=== PATIENT | male | born 1975 | race Caucasian/White ===

== ENCOUNTER 2020-12-24 13:44 | Inpatient (IN) | payer OTHER ==
[2020-12-24 16:00] VITALS: BMI 30.2
[2020-12-24] MEDS ORDERED: ONDANSETRON *ODT* 4 MG TABLET SL PRN (18:24)
[2020-12-24] MEDS ORDERED: MENTHOL/PHENOL 1 EACH UD MM PRN (18:24)
[2020-12-24] MEDS ORDERED: MAGNESIUM HYDROX 2400MG/30ML ORAL SUSPENSION 30 ML CUP PO PRN (18:24)
[2020-12-24] MEDS ORDERED: MAG HYDROX/AL HYDROX/SIMETH 30 ML UNIT-DOSE CUP PO PRN (18:24)
[2020-12-24] MEDS ORDERED: NICOTINE POLACRILEX 2 MG GUM BUC PRN (18:24)
[2020-12-24] MEDS ORDERED: MAGNESIUM CITRATE 300 ML BOTTLE PO PRN (18:24)
[2020-12-24] MEDS ORDERED: ACETAMINOPHEN 325 MG TABLET (FP) PO PRN ×2 (18:24)
[2020-12-24] MEDS ORDERED: BISMUTH SUBSALICYLATE 524 MG/30 ML UD PO PRN (18:24)
[2020-12-24] MEDS ORDERED: METHADONE HCL 10 MG TABLET (FOR DETOX USE ONLY) PO ONE (20:00)
[2020-12-24] MEDS: MELATONIN 5 MG TABLETS PO SCH (22:27)
[2020-12-24] MEDS: THIAMINE HCL 100 MG TABLET (FP) PO SCH (22:27)
[2020-12-25] MEDS: METHOCARBAMOL 500 MG TABLET PO PRN ×2 (02:23→09:47)
[2020-12-25] MEDS: cloNIDine HCL 0.1 MG TABLET PO PRN (02:24)
[2020-12-25] MEDS ORDERED: METHADONE HCL 10 MG TABLET (FOR DETOX USE ONLY) ONE (09:15)
[2020-12-25] MEDS ORDERED: METHADONE HCL 5 MG TABLET (FOR DETOX USE ONLY) ONE (09:15)
[2020-12-25] MEDS: NICOTINE 21 MG/24 HOURS TOPICAL PATCH TD SCH (09:46)
[2020-12-25] MEDS: PRENATAL VITAMINS W/ FOLIC ACID TABLET (FP) PO SCH (09:46)
[2020-12-25] MEDS ORDERED: METHADONE (DETOX) 20 MG, METHADONE (DETOX) 5 MG PO ONE (10:00)
[2020-12-25 10:52] LABS: HEMATOCRIT 39.6 % (35.4-49); HEMOGLOBIN 13.6 GM/dL (11.7-16.9); MCH 31.9 pg (25.7-33.7); MCHC 34.4 g/dl (32.0-35.9); MEAN CELL VOLUME 92.8 fl (80-96); MEAN PLT VOLUME 9.7 fl (7.5-11.1); PLATELET COUNT 180 K/MM3 (134-434); RBC 4.27 M/mm3 (4.00-5.60); WHITE BLOOD COUNT 6.7 K/mm3 (4.0-10.0)
[2020-12-25 10:57] LABS: POTASSIUM 3.9 mmol/L (3.5-5.1)
[2020-12-25 11:04] LABS: ALBUMIN 3.1 g/dl (3.4-5.0); BLOOD UREA NITROGEN 13.2 mg/dL (7-18); CALCIUM 8.3 mg/dL (8.5-10.1)
[2020-12-25 11:09] LABS: BILIRUBIN,TOTAL 0.6 mg/dL (0.2-1)
[2020-12-25] MEDS ORDERED: ALBUTEROL SO4 HFA INHALER IH PRN (11:55)
[2020-12-25 13:08] LABS: HIV INTERPRETATION NEGATIVE (NEGATIVE)
[2020-12-25] MEDS: AMMONIUM LACTATE 12% LOTION 225 GM BOTTLE TP SCH (21:58)
[2020-12-25] MEDS: MELATONIN 5 MG TABLETS PO SCH (22:00)
[2020-12-25] MEDS: THIAMINE HCL 100 MG TABLET (FP) PO SCH (22:00)
[2020-12-25] MEDS: diazePAM 5 MG TABLET PO PRN (22:04)
[2020-12-26] MEDS: diazePAM 5 MG TABLET PO PRN ×3 (03:10→22:46)
[2020-12-26] MEDS: METHOCARBAMOL 500 MG TABLET PO PRN ×2 (03:10→11:16)
[2020-12-26] MEDS: PRENATAL VITAMINS W/ FOLIC ACID TABLET (FP) PO SCH (09:32)
[2020-12-26] MEDS: NICOTINE 21 MG/24 HOURS TOPICAL PATCH TD SCH (09:32)
[2020-12-26] MEDS: AMMONIUM LACTATE 12% LOTION 225 GM BOTTLE TP SCH ×2 (09:33→22:48)
[2020-12-26] MEDS ORDERED: METHADONE HCL 10 MG TABLET (FOR DETOX USE ONLY) PO ONE (10:00)
[2020-12-26] MEDS: cloNIDine HCL 0.1 MG TABLET PO PRN (11:16)
[2020-12-26] MEDS: IBUPROFEN 400 MG TABLET (FP) PO PRN ×2 (11:16→17:50)
[2020-12-26] MEDS: THIAMINE HCL 100 MG TABLET (FP) PO SCH (22:44)
[2020-12-26] MEDS: MELATONIN 5 MG TABLETS PO SCH (22:45)
[2020-12-27] MEDS: METHOCARBAMOL 500 MG TABLET PO PRN ×3 (05:42→22:20)
[2020-12-27] MEDS ORDERED: METHADONE HCL 10 MG TABLET (FOR DETOX USE ONLY) ONE (09:42)
[2020-12-27] MEDS ORDERED: METHADONE HCL 5 MG TABLET (FOR DETOX USE ONLY) ONE (09:42)
[2020-12-27] MEDS: NICOTINE 21 MG/24 HOURS TOPICAL PATCH TD SCH (10:00)
[2020-12-27] MEDS ORDERED: METHADONE (DETOX) 10 MG, METHADONE (DETOX) 5 MG PO ONE (10:00)
[2020-12-27] MEDS: PRENATAL VITAMINS W/ FOLIC ACID TABLET (FP) PO SCH (10:01)
[2020-12-27] MEDS: AMMONIUM LACTATE 12% LOTION 225 GM BOTTLE TP SCH ×2 (10:02→21:58)
[2020-12-27] MEDS: diazePAM 5 MG TABLET PO PRN ×2 (14:38→20:28)
[2020-12-27] MEDS: IBUPROFEN 400 MG TABLET (FP) PO PRN ×2 (14:38→22:21)
[2020-12-27] MEDS: MELATONIN 5 MG TABLETS PO SCH (21:56)
[2020-12-27] MEDS: THIAMINE HCL 100 MG TABLET (FP) PO SCH (21:56)
[2020-12-28] MEDS: diazePAM 5 MG TABLET PO PRN ×2 (05:13→10:09)
[2020-12-28] MEDS: METHOCARBAMOL 500 MG TABLET PO PRN ×2 (05:15→20:17)
[2020-12-28] MEDS ORDERED: METHADONE HCL 10 MG TABLET (FOR DETOX USE ONLY) PO ONE (10:00)
[2020-12-28] MEDS: AMMONIUM LACTATE 12% LOTION 225 GM BOTTLE TP SCH ×2 (10:05→21:41)
[2020-12-28] MEDS: NICOTINE 21 MG/24 HOURS TOPICAL PATCH TD SCH (10:05)
[2020-12-28] MEDS: PRENATAL VITAMINS W/ FOLIC ACID TABLET (FP) PO SCH (10:07)
[2020-12-28] MEDS: IBUPROFEN 400 MG TABLET (FP) PO PRN (10:11)
[2020-12-28] MEDS: hydrOXYzine PAMOATE 25 MG CAPSULE (FP) PO PRN ×2 (14:30→20:17)
[2020-12-28] MEDS: MELATONIN 5 MG TABLETS PO SCH (21:41)
[2020-12-28] MEDS: THIAMINE HCL 100 MG TABLET (FP) PO SCH (21:41)
[2020-12-29] MEDS: IBUPROFEN 400 MG TABLET (FP) PO PRN (02:29)
[2020-12-29] MEDS: METHOCARBAMOL 500 MG TABLET PO PRN (02:30)
[2020-12-29] MEDS: hydrOXYzine PAMOATE 25 MG CAPSULE (FP) PO PRN (05:21)
[2020-12-29] MEDS ORDERED: METHADONE HCL 5 MG TABLET (FOR DETOX USE ONLY) PO ONE (06:00)
[2020-12-29 06:19] VITALS: BP 102/58; PULSE 61; TEMP 97.2
[2020-12-29] MEDS: AMMONIUM LACTATE 12% LOTION 225 GM BOTTLE TP SCH (10:06)
[2020-12-29] MEDS: PRENATAL VITAMINS W/ FOLIC ACID TABLET (FP) PO SCH (10:07)
[2020-12-29] MEDS: NICOTINE 21 MG/24 HOURS TOPICAL PATCH TD SCH (10:07)
== END 2020-12-29 12:05 | disposition other institution (70) | DRG 773 ==
LOC: YASAS 13:44 → Y3N 19:47
PROVIDERS: ADMIT Allergy & Immunology; ATTEND Allergy & Immunology
PROC: HZ2ZZZZ Detoxification Services for Substance Abuse Treatment (ICD-10-PCS; principal; 2020-12-24)
DX: F11.23 Opioid dependence with withdrawal (principal); F14.20 Cocaine dependence, uncomplicated; F17.210 Nicotine dependence, cigarettes, uncomplicated; J45.909 Unspecified asthma, uncomplicated; L40.9 Psoriasis, unspecified; R76.11 Nonspecific reaction to tuberculin skin test without active tuberculosis; Z56.0 Unemployment, unspecified; Z59.0 Homelessness
CPT/HCPCS: 36415; 71046-TC-FY; 80053; 85027; 86780; 87389; 93005; 93010; C9803; J0735; Q0162; U0003

== ENCOUNTER 2020-12-29 13:36 | Inpatient (IN) | payer OTHER ==
[2020-12-29] MEDS ORDERED: MENTHOL/PHENOL 1 EACH UD MM PRN (15:28)
[2020-12-29] MEDS ORDERED: MAGNESIUM CITRATE 300 ML BOTTLE PO PRN (15:28)
[2020-12-29] MEDS ORDERED: MAGNESIUM HYDROX 2400MG/30ML ORAL SUSPENSION 30 ML CUP PO PRN (15:28)
[2020-12-29] MEDS ORDERED: LOPERAMIDE HCL 2 MG CAPSULE PO PRN (15:28)
[2020-12-29] MEDS ORDERED: NICOTINE POLACRILEX 2 MG GUM BUC PRN (15:28)
[2020-12-29] MEDS ORDERED: P-EPHED 60MG/TRIPROLIDI 2.5MG TABLET PO PRN (15:28)
[2020-12-29] MEDS ORDERED: MAG HYDROX/AL HYDROX/SIMETH 30 ML UNIT-DOSE CUP PO PRN (15:28)
[2020-12-29] MEDS ORDERED: guaiFENesin 200 MG/10 ML 10 ML UNIT-DOSE CUPS PO PRN (15:28)
[2020-12-29] MEDS ORDERED: AMMONIUM LACTATE 12% LOTION 225 GM BOTTLE TP PRN (15:33)
[2020-12-29] MEDS ORDERED: PT OWN MED DRAWER 7, Y5N ONE (15:58)
[2020-12-29] MEDS: hydrOXYzine PAMOATE 25 MG CAPSULE (FP) PO PRN (19:41)
[2020-12-29] MEDS: THIAMINE HCL 100 MG TABLET (FP) PO SCH (21:20)
[2020-12-29] MEDS: MELATONIN 5 MG TABLETS PO SCH (21:20)
[2020-12-29] MEDS: ALBUTEROL SO4 HFA INHALER IH PRN (23:05)
[2020-12-30] MEDS: hydrOXYzine PAMOATE 25 MG CAPSULE (FP) PO PRN ×5 (00:49→21:11)
[2020-12-30] MEDS: IBUPROFEN 400 MG TABLET (FP) PO PRN ×2 (04:59→14:38)
[2020-12-30] MEDS ORDERED: PT OWN MED DRAWER 7, Y5N ONE (08:48)
[2020-12-30] MEDS: PRENATAL VITAMINS W/ FOLIC ACID TABLET (FP) PO SCH (09:51)
[2020-12-30] MEDS: NICOTINE 14 MG/24 HOURS TOPICAL PATCH TD SCH (09:51)
[2020-12-30] MEDS: ACETAMINOPHEN 325 MG TABLET (FP) PO PRN (09:54)
[2020-12-30] MEDS: MELATONIN 5 MG TABLETS PO SCH (21:11)
[2020-12-30] MEDS: THIAMINE HCL 100 MG TABLET (FP) PO SCH (21:11)
[2020-12-30] MEDS: cloNIDine HCL 0.1 MG TABLET PO SCH (21:12)
[2020-12-30] MEDS: METHOCARBAMOL 500 MG TABLET PO PRN (23:36)
[2020-12-31] MEDS: hydrOXYzine PAMOATE 25 MG CAPSULE (FP) PO PRN (10:09)
[2020-12-31] MEDS: NICOTINE 14 MG/24 HOURS TOPICAL PATCH TD SCH (10:09)
[2020-12-31] MEDS: cloNIDine HCL 0.1 MG TABLET PO SCH ×2 (10:09→21:27)
[2020-12-31] MEDS: PRENATAL VITAMINS W/ FOLIC ACID TABLET (FP) PO SCH (10:09)
[2020-12-31] MEDS: THIAMINE HCL 100 MG TABLET (FP) PO SCH (21:27)
[2020-12-31] MEDS: MELATONIN 5 MG TABLETS PO SCH (21:27)
[2021-01-01] MEDS: hydrOXYzine PAMOATE 25 MG CAPSULE (FP) PO PRN ×2 (06:31→09:59)
[2021-01-01] MEDS: PRENATAL VITAMINS W/ FOLIC ACID TABLET (FP) PO SCH (09:58)
[2021-01-01] MEDS: NICOTINE 14 MG/24 HOURS TOPICAL PATCH TD SCH (09:58)
[2021-01-01] MEDS: cloNIDine HCL 0.1 MG TABLET PO SCH ×2 (09:59→21:25)
[2021-01-01] MEDS: ACETAMINOPHEN 325 MG TABLET (FP) PO PRN (10:02)
[2021-01-01] MEDS: METHOCARBAMOL 500 MG TABLET PO PRN (11:43)
[2021-01-01] MEDS: IBUPROFEN 400 MG TABLET (FP) PO PRN (11:43)
[2021-01-01] MEDS: THIAMINE HCL 100 MG TABLET (FP) PO SCH (21:25)
[2021-01-01] MEDS: MELATONIN 5 MG TABLETS PO SCH (21:25)
[2021-01-02] MEDS: hydrOXYzine PAMOATE 25 MG CAPSULE (FP) PO PRN ×3 (02:22→21:17)
[2021-01-02] MEDS: IBUPROFEN 400 MG TABLET (FP) PO PRN ×2 (02:23→16:27)
[2021-01-02] MEDS: cloNIDine HCL 0.1 MG TABLET PO SCH ×2 (10:28→21:16)
[2021-01-02] MEDS: NICOTINE 14 MG/24 HOURS TOPICAL PATCH TD SCH (10:28)
[2021-01-02] MEDS: PRENATAL VITAMINS W/ FOLIC ACID TABLET (FP) PO SCH (10:28)
[2021-01-02] MEDS: THIAMINE HCL 100 MG TABLET (FP) PO SCH (21:15)
[2021-01-02] MEDS: MELATONIN 5 MG TABLETS PO SCH (21:15)
[2021-01-03] MEDS: NICOTINE 14 MG/24 HOURS TOPICAL PATCH TD SCH ×2 (10:01→10:05)
[2021-01-03] MEDS: PRENATAL VITAMINS W/ FOLIC ACID TABLET (FP) PO SCH ×2 (10:01→10:05)
[2021-01-03] MEDS: hydrOXYzine PAMOATE 25 MG CAPSULE (FP) PO PRN (10:05)
[2021-01-03] MEDS: IBUPROFEN 400 MG TABLET (FP) PO PRN ×2 (10:06→19:47)
[2021-01-03] MEDS: THIAMINE HCL 100 MG TABLET (FP) PO SCH (21:29)
[2021-01-03] MEDS: MELATONIN 5 MG TABLETS PO SCH (21:29)
[2021-01-04] MEDS: NICOTINE 14 MG/24 HOURS TOPICAL PATCH TD SCH (09:51)
[2021-01-04] MEDS: PRENATAL VITAMINS W/ FOLIC ACID TABLET (FP) PO SCH (09:52)
[2021-01-04] MEDS: METHOCARBAMOL 500 MG TABLET PO PRN ×3 (13:47→21:18)
[2021-01-04] MEDS: hydrOXYzine PAMOATE 25 MG CAPSULE (FP) PO PRN ×3 (13:47→21:18)
[2021-01-04] MEDS ORDERED: MASKS NR ONE (15:39)
[2021-01-04] MEDS: MELATONIN 5 MG TABLETS PO SCH (21:17)
[2021-01-04] MEDS: THIAMINE HCL 100 MG TABLET (FP) PO SCH (21:17)
[2021-01-05] MEDS: NICOTINE 14 MG/24 HOURS TOPICAL PATCH TD SCH (09:49)
[2021-01-05] MEDS: hydrOXYzine PAMOATE 25 MG CAPSULE (FP) PO PRN ×2 (09:49→21:03)
[2021-01-05] MEDS: PRENATAL VITAMINS W/ FOLIC ACID TABLET (FP) PO SCH (09:51)
[2021-01-05] MEDS: THIAMINE HCL 100 MG TABLET (FP) PO SCH (21:02)
[2021-01-05] MEDS: MELATONIN 5 MG TABLETS PO SCH (21:02)
[2021-01-06] MEDS: METHOCARBAMOL 500 MG TABLET PO PRN ×2 (03:42→16:59)
[2021-01-06] MEDS: hydrOXYzine PAMOATE 25 MG CAPSULE (FP) PO PRN (03:42)
[2021-01-06] MEDS ORDERED: PT OWN MED DRAWER 7, Y5N ONE (03:44)
[2021-01-06] MEDS: PRENATAL VITAMINS W/ FOLIC ACID TABLET (FP) PO SCH (09:47)
[2021-01-06] MEDS: NICOTINE 14 MG/24 HOURS TOPICAL PATCH TD SCH (09:47)
[2021-01-06] MEDS: IBUPROFEN 400 MG TABLET (FP) PO PRN (16:59)
[2021-01-06] MEDS: MELATONIN 5 MG TABLETS PO SCH (21:46)
[2021-01-06] MEDS: THIAMINE HCL 100 MG TABLET (FP) PO SCH (21:46)
[2021-01-07] MEDS: hydrOXYzine PAMOATE 25 MG CAPSULE (FP) PO PRN ×3 (01:46→21:16)
[2021-01-07] MEDS: IBUPROFEN 400 MG TABLET (FP) PO PRN ×3 (01:46→18:52)
[2021-01-07] MEDS: METHOCARBAMOL 500 MG TABLET PO PRN ×3 (01:47→18:52)
[2021-01-07] MEDS: PRENATAL VITAMINS W/ FOLIC ACID TABLET (FP) PO SCH (09:34)
[2021-01-07] MEDS: NICOTINE 14 MG/24 HOURS TOPICAL PATCH TD SCH (09:34)
[2021-01-07] MEDS: THIAMINE HCL 100 MG TABLET (FP) PO SCH (21:16)
[2021-01-07] MEDS: MELATONIN 5 MG TABLETS PO SCH (21:16)
[2021-01-08] MEDS: IBUPROFEN 400 MG TABLET (FP) PO PRN (07:12)
[2021-01-08] MEDS: METHOCARBAMOL 500 MG TABLET PO PRN (07:12)
[2021-01-08] MEDS: PRENATAL VITAMINS W/ FOLIC ACID TABLET (FP) PO SCH (09:40)
[2021-01-08] MEDS: hydrOXYzine PAMOATE 25 MG CAPSULE (FP) PO PRN ×2 (09:47→22:14)
[2021-01-08] MEDS: NICOTINE 14 MG/24 HOURS TOPICAL PATCH TD SCH (09:47)
[2021-01-08] MEDS: MINERAL OIL/PETROLAT/WATER TOPICAL CREAM 113 GM JAR TP SCH ×2 (09:58→22:15)
[2021-01-08] MEDS: MELATONIN 5 MG TABLETS PO SCH (22:14)
[2021-01-08] MEDS: CYCLOBENZAPRINE HCL 10 MG TABLET (FP) PO SCH (22:14)
[2021-01-08] MEDS: THIAMINE HCL 100 MG TABLET (FP) PO SCH (22:14)
[2021-01-09] MEDS: MINERAL OIL/PETROLAT/WATER TOPICAL CREAM 113 GM JAR TP SCH ×2 (09:40→21:14)
[2021-01-09] MEDS: hydrOXYzine PAMOATE 25 MG CAPSULE (FP) PO PRN ×2 (09:41→21:13)
[2021-01-09] MEDS: ALBUTEROL SO4 HFA INHALER IH PRN (09:41)
[2021-01-09] MEDS: METHOCARBAMOL 500 MG TABLET PO PRN (09:41)
[2021-01-09] MEDS: PRENATAL VITAMINS W/ FOLIC ACID TABLET (FP) PO SCH (09:41)
[2021-01-09] MEDS: NICOTINE 14 MG/24 HOURS TOPICAL PATCH TD SCH (09:42)
[2021-01-09] MEDS: MELATONIN 5 MG TABLETS PO SCH (21:13)
[2021-01-09] MEDS: THIAMINE HCL 100 MG TABLET (FP) PO SCH (21:13)
[2021-01-09] MEDS: CYCLOBENZAPRINE HCL 10 MG TABLET (FP) PO SCH (21:13)
[2021-01-10] MEDS: NICOTINE 14 MG/24 HOURS TOPICAL PATCH TD SCH (09:49)
[2021-01-10] MEDS: MINERAL OIL/PETROLAT/WATER TOPICAL CREAM 113 GM JAR TP SCH ×2 (09:49→21:17)
[2021-01-10] MEDS: PRENATAL VITAMINS W/ FOLIC ACID TABLET (FP) PO SCH (09:50)
[2021-01-10] MEDS: THIAMINE HCL 100 MG TABLET (FP) PO SCH (21:16)
[2021-01-10] MEDS: hydrOXYzine PAMOATE 25 MG CAPSULE (FP) PO PRN (21:16)
[2021-01-10] MEDS: CYCLOBENZAPRINE HCL 10 MG TABLET (FP) PO SCH (21:16)
[2021-01-10] MEDS: MELATONIN 5 MG TABLETS PO SCH (21:16)
[2021-01-11 07:09] VITALS: TEMP 97.3
[2021-01-11] MEDS ORDERED: PT OWN MED DRAWER 7, Y5N ONE (07:30)
[2021-01-11] MEDS: NICOTINE 14 MG/24 HOURS TOPICAL PATCH TD SCH (09:58)
[2021-01-11] MEDS: IBUPROFEN 400 MG TABLET (FP) PO PRN (09:58)
[2021-01-11] MEDS: PRENATAL VITAMINS W/ FOLIC ACID TABLET (FP) PO SCH (09:58)
[2021-01-11] MEDS: MINERAL OIL/PETROLAT/WATER TOPICAL CREAM 113 GM JAR TP SCH ×2 (09:58→22:55)
[2021-01-11] MEDS: MELATONIN 5 MG TABLETS PO SCH (22:54)
[2021-01-11] MEDS: THIAMINE HCL 100 MG TABLET (FP) PO SCH (22:54)
[2021-01-11] MEDS: METHOCARBAMOL 500 MG TABLET PO PRN (22:55)
[2021-01-11] MEDS: hydrOXYzine PAMOATE 25 MG CAPSULE (FP) PO PRN (22:55)
[2021-01-11] MEDS: CYCLOBENZAPRINE HCL 10 MG TABLET (FP) PO SCH (22:55)
[2021-01-12] MEDS: MINERAL OIL/PETROLAT/WATER TOPICAL CREAM 113 GM JAR TP SCH ×2 (10:15→21:29)
[2021-01-12] MEDS: NICOTINE 14 MG/24 HOURS TOPICAL PATCH TD SCH (10:15)
[2021-01-12] MEDS: PRENATAL VITAMINS W/ FOLIC ACID TABLET (FP) PO SCH (11:15)
[2021-01-12] MEDS: hydrOXYzine PAMOATE 25 MG CAPSULE (FP) PO PRN (11:47)
[2021-01-12] MEDS: IBUPROFEN 400 MG TABLET (FP) PO PRN (11:47)
[2021-01-12] MEDS ORDERED: PT OWN MED DRAWER 7, Y5N ONE (19:02)
[2021-01-12] MEDS: MELATONIN 5 MG TABLETS PO SCH (21:28)
[2021-01-12] MEDS: METHOCARBAMOL 500 MG TABLET PO PRN (21:28)
[2021-01-12] MEDS: CYCLOBENZAPRINE HCL 10 MG TABLET (FP) PO SCH (21:28)
[2021-01-12] MEDS: THIAMINE HCL 100 MG TABLET (FP) PO SCH (21:28)
[2021-01-13 06:49] VITALS: BP 112/81; PULSE 56
[2021-01-13] MEDS: NICOTINE 14 MG/24 HOURS TOPICAL PATCH TD SCH (09:56)
[2021-01-13] MEDS: PRENATAL VITAMINS W/ FOLIC ACID TABLET (FP) PO SCH (09:56)
[2021-01-13] MEDS: MINERAL OIL/PETROLAT/WATER TOPICAL CREAM 113 GM JAR TP SCH (09:56)
[2021-01-13] MEDS: IBUPROFEN 400 MG TABLET (FP) PO PRN (12:01)
[2021-01-13] MEDS: hydrOXYzine PAMOATE 25 MG CAPSULE (FP) PO PRN (12:01)
[2021-01-13] MEDS ORDERED: cloNIDine HCL 0.1 MG TABLET PO ONE (12:30)
[2021-01-13] MEDS ORDERED: PT OWN MED DRAWER 7, Y5N ONE (14:44)
== END 2021-01-13 21:21 | disposition home or self-care (01) | DRG 772 ==
LOC: YASAS 13:36 → Y3E 13:37
PROVIDERS: ADMIT Allergy & Immunology; ATTEND Allergy & Immunology
PROC: HZ42ZZZ Group Counseling for Substance Abuse Treatment, Cognitive-Behavioral (ICD-10-PCS; principal; 2020-12-29)
DX: F11.20 Opioid dependence, uncomplicated (principal); F14.20 Cocaine dependence, uncomplicated; F17.210 Nicotine dependence, cigarettes, uncomplicated; J45.909 Unspecified asthma, uncomplicated; L85.3 Xerosis cutis; M54.5 Low back pain; G89.29 Other chronic pain; R76.11 Nonspecific reaction to tuberculin skin test without active tuberculosis
CPT/HCPCS: 72100-TC-FY; 82962; C9803; J0735; U0003

== ENCOUNTER 2021-02-16 13:40 | Inpatient (IN) | payer OTHER ==
[2021-02-16 16:08] VITALS: BMI 29.5
[2021-02-16] MEDS ORDERED: PERMETHRIN 5% TOPICAL CREAM 60 GM TUBE TP ONE (16:11)
[2021-02-16] MEDS ORDERED: MAGNESIUM CITRATE 300 ML BOTTLE PO PRN (16:56)
[2021-02-16] MEDS ORDERED: PERMETHRIN 5% TOPICAL CREAM 60 GM TUBE ONE (16:56)
[2021-02-16] MEDS ORDERED: NALOXONE (NARCAN) HCL 4 MG/0.1 ML SPRAY NS PRN (16:56)
[2021-02-16] MEDS ORDERED: MENTHOL/PHENOL 1 EACH UD MM PRN (16:56)
[2021-02-16] MEDS ORDERED: ONDANSETRON *ODT* 4 MG TABLET SL PRN (16:56)
[2021-02-16] MEDS ORDERED: MAGNESIUM HYDROX 2400MG/30ML ORAL SUSPENSION 30 ML CUP PO PRN (16:56)
[2021-02-16] MEDS ORDERED: IBUPROFEN 400 MG TABLET (FP) PO PRN (16:56)
[2021-02-16] MEDS ORDERED: MAG HYDROX/AL HYDROX/SIMETH 30 ML UNIT-DOSE CUP PO PRN (16:56)
[2021-02-16] MEDS ORDERED: ACETAMINOPHEN 325 MG TABLET (FP) PO PRN ×2 (16:56)
[2021-02-16] MEDS ORDERED: BISMUTH SUBSALICYLATE 524 MG/30 ML UD PO PRN (16:56)
[2021-02-16] MEDS ORDERED: NICOTINE POLACRILEX 2 MG GUM BUC PRN (16:56)
[2021-02-16] MEDS ORDERED: ALBUTEROL SO4 HFA INHALER IH PRN (19:06)
[2021-02-16] MEDS: hydrOXYzine PAMOATE 25 MG CAPSULE (FP) PO SCH (21:10)
[2021-02-16] MEDS: MELATONIN 5 MG TABLETS PO SCH (21:10)
[2021-02-16] MEDS: METHOCARBAMOL 500 MG TABLET PO PRN (21:10)
[2021-02-16] MEDS: PRENATAL VITAMINS W/ FOLIC ACID TABLET (FP) PO SCH (21:11)
[2021-02-17] MEDS: THIAMINE HCL 100 MG TABLET (FP) PO SCH (00:06)
[2021-02-17] MEDS: hydrOXYzine PAMOATE 25 MG CAPSULE (FP) PO SCH ×4 (00:06→14:18)
[2021-02-17] MEDS: NICOTINE 21 MG/24 HOURS TOPICAL PATCH TD SCH ×2 (00:06→11:15)
[2021-02-17] MEDS: PRENATAL VITAMINS W/ FOLIC ACID TABLET (FP) PO SCH (11:15)
[2021-02-17 12:15] LABS: HEMATOCRIT 40.2 % (35.4-49); HEMOGLOBIN 13.4 GM/dL (11.7-16.9); MCH 30.4 pg (25.7-33.7); MCHC 33.3 g/dl (32.0-35.9); MEAN CELL VOLUME 91.5 fl (80-96); MEAN PLT VOLUME 9.4 fl (7.5-11.1); PLATELET COUNT 197 K/MM3 (134-434); RBC 4.39 M/mm3 (4.00-5.60); RDW 13.8 % (11.9-15.9); WHITE BLOOD COUNT 4.5 K/mm3 (4.0-10.0)
[2021-02-17 12:24] LABS: ALBUMIN 3.1 g/dl (3.4-5.0); BLOOD UREA NITROGEN 7.5 mg/dL (7-18); CALCIUM 8.1 mg/dL (8.5-10.1)
[2021-02-17 12:29] LABS: BILIRUBIN,TOTAL 0.4 mg/dL (0.2-1)
[2021-02-17 12:43] LABS: CREATININE 0.9 mg/dL (0.55-1.3)
[2021-02-17] MEDS ORDERED: METHADONE HCL 10 MG TABLET (FOR DETOX USE ONLY) PO ONE (13:22)
[2021-02-18] MEDS: THIAMINE HCL 100 MG TABLET (FP) PO SCH ×2 (00:21→22:05)
[2021-02-18] MEDS: MELATONIN 5 MG TABLETS PO SCH ×2 (00:21→22:03)
[2021-02-18] MEDS: hydrOXYzine PAMOATE 25 MG CAPSULE (FP) PO SCH ×6 (00:21→22:04)
[2021-02-18] MEDS ORDERED: METHADONE HCL 5 MG TABLET (FOR DETOX USE ONLY) ONE (09:27)
[2021-02-18] MEDS ORDERED: METHADONE HCL 10 MG TABLET (FOR DETOX USE ONLY) ONE (09:27)
[2021-02-18] MEDS ORDERED: METHADONE (DETOX) 20 MG, METHADONE (DETOX) 5 MG PO ONE (10:00)
[2021-02-18] MEDS: NICOTINE 21 MG/24 HOURS TOPICAL PATCH TD SCH (10:37)
[2021-02-18] MEDS: PRENATAL VITAMINS W/ FOLIC ACID TABLET (FP) PO SCH (10:37)
[2021-02-18] MEDS: GABAPENTIN 100 MG CAPSULE PO SCH ×2 (14:21→22:04)
[2021-02-19] MEDS: GABAPENTIN 100 MG CAPSULE PO SCH ×3 (06:26→22:19)
[2021-02-19] MEDS: hydrOXYzine PAMOATE 25 MG CAPSULE (FP) PO SCH ×5 (06:26→22:18)
[2021-02-19] MEDS ORDERED: METHADONE HCL 10 MG TABLET (FOR DETOX USE ONLY) PO ONE (10:00)
[2021-02-19] MEDS: PRENATAL VITAMINS W/ FOLIC ACID TABLET (FP) PO SCH (10:06)
[2021-02-19] MEDS: NICOTINE 21 MG/24 HOURS TOPICAL PATCH TD SCH (10:06)
[2021-02-19] MEDS: MELATONIN 5 MG TABLETS PO SCH (22:18)
[2021-02-19] MEDS: THIAMINE HCL 100 MG TABLET (FP) PO SCH (22:20)
[2021-02-20] MEDS: METHOCARBAMOL 500 MG TABLET PO PRN ×2 (02:07→22:32)
[2021-02-20] MEDS: GABAPENTIN 100 MG CAPSULE PO SCH ×3 (06:08→22:09)
[2021-02-20] MEDS: hydrOXYzine PAMOATE 25 MG CAPSULE (FP) PO SCH ×5 (06:08→22:10)
[2021-02-20] MEDS ORDERED: METHADONE HCL 5 MG TABLET (FOR DETOX USE ONLY) ONE (08:53)
[2021-02-20] MEDS ORDERED: METHADONE HCL 10 MG TABLET (FOR DETOX USE ONLY) ONE (08:53)
[2021-02-20] MEDS ORDERED: METHADONE (DETOX) 10 MG, METHADONE (DETOX) 5 MG PO ONE (10:00)
[2021-02-20] MEDS: NICOTINE 21 MG/24 HOURS TOPICAL PATCH TD SCH (10:08)
[2021-02-20] MEDS: PRENATAL VITAMINS W/ FOLIC ACID TABLET (FP) PO SCH (10:10)
[2021-02-20 13:01] LABS: SARS-CoV-2 NAA Not Detected
[2021-02-20] MEDS ORDERED: METHADONE HCL 5 MG TABLET (FOR DETOX USE ONLY) PO ONE (14:00)
[2021-02-20] MEDS: THIAMINE HCL 100 MG TABLET (FP) PO SCH (22:10)
[2021-02-20] MEDS: MELATONIN 5 MG TABLETS PO SCH (22:10)
[2021-02-21] MEDS: hydrOXYzine PAMOATE 25 MG CAPSULE (FP) PO SCH ×5 (05:28→22:27)
[2021-02-21] MEDS: GABAPENTIN 100 MG CAPSULE PO SCH ×3 (05:29→22:27)
[2021-02-21] MEDS ORDERED: METHADONE HCL 10 MG TABLET (FOR DETOX USE ONLY) PO ONE (10:00)
[2021-02-21] MEDS: NICOTINE 21 MG/24 HOURS TOPICAL PATCH TD SCH (10:03)
[2021-02-21] MEDS: PRENATAL VITAMINS W/ FOLIC ACID TABLET (FP) PO SCH (10:03)
[2021-02-21] MEDS ORDERED: COVID-19 VAC,AD26(JANSSEN)/PF 0.5 ML IM ONE (12:00)
[2021-02-21] MEDS ORDERED: LOPERAMIDE HCL 2 MG CAPSULE PO ONE (12:45)
[2021-02-21] MEDS ORDERED: ACETAMINOPHEN 325 MG TABLET (FP) PO ONE (12:45)
[2021-02-21] MEDS ORDERED: NICOTINE 14 MG/24 HOURS TOPICAL PATCH TD SCH (14:00)
[2021-02-21] MEDS ORDERED: cloNIDine HCL 0.1 MG TABLET PO ONE (14:14)
[2021-02-21] MEDS ORDERED: cloNIDine HCL 0.1 MG TABLET PO SCH (22:00)
[2021-02-21] MEDS: THIAMINE HCL 100 MG TABLET (FP) PO SCH (22:27)
[2021-02-21] MEDS: MELATONIN 5 MG TABLETS PO SCH (22:27)
[2021-02-22] MEDS: hydrOXYzine PAMOATE 25 MG CAPSULE (FP) PO SCH (05:54)
[2021-02-22] MEDS ORDERED: METHADONE HCL 5 MG TABLET (FOR DETOX USE ONLY) PO ONE (06:00)
[2021-02-22 06:28] VITALS: BP 110/57; PULSE 52; TEMP 98.4
== END 2021-02-22 09:28 | disposition home or self-care (01) | DRG 773 ==
LOC: YASAS 13:40 → Y6N 20:10 → UNDOADMIN 20:10 → Y6N 02-19 09:44
PROVIDERS: ADMIT Allergy & Immunology; ATTEND Allergy & Immunology
PROC: HZ2ZZZZ Detoxification Services for Substance Abuse Treatment (ICD-10-PCS; principal; 2021-02-16)
DX: F11.23 Opioid dependence with withdrawal (principal); F10.20 Alcohol dependence, uncomplicated; F14.20 Cocaine dependence, uncomplicated; F12.20 Cannabis dependence, uncomplicated; F17.210 Nicotine dependence, cigarettes, uncomplicated; F19.24 Other psychoactive substance dependence with psychoactive substance-induced mood disorder; J45.20 Mild intermittent asthma, uncomplicated; L40.9 Psoriasis, unspecified; B86 Scabies; R76.11 Nonspecific reaction to tuberculin skin test without active tuberculosis; Z63.4 Disappearance and death of family member; Z68.29 Body mass index [BMI] 29.0-29.9, adult
CPT/HCPCS: 0031A; 36415; 80053; 85027; 86780; 91303; C9803; J0735; U0003; U0005

== ENCOUNTER 2021-07-11 10:34 | Inpatient (IN) | payer OTHER ==
[2021-07-11] MEDS ORDERED: diazePAM 5 MG TABLET PO SCH (11:00)
[2021-07-11] MEDS ORDERED: ALBUTEROL SO4 2.5/IPRATROPIUM 0.5 INH SOL 3 ML VIAL.NEB. NEB ONE (11:05)
[2021-07-11 11:41] VITALS: BMI 25.7
[2021-07-11] MEDS ORDERED: MAGNESIUM HYDROX 2400MG/30ML ORAL SUSPENSION 30 ML CUP PO PRN (12:13)
[2021-07-11] MEDS ORDERED: ACETAMINOPHEN 325 MG TABLET (FP) PO PRN (12:13)
[2021-07-11] MEDS ORDERED: MENTHOL/PHENOL 1 EACH UD MM PRN (12:13)
[2021-07-11] MEDS ORDERED: ONDANSETRON *ODT* 4 MG TABLET SL PRN (12:13)
[2021-07-11] MEDS ORDERED: METHOCARBAMOL 500 MG TABLET PO PRN (12:13)
[2021-07-11] MEDS ORDERED: MAG HYDROX/AL HYDROX/SIMETH 30 ML UNIT-DOSE CUP PO PRN (12:13)
[2021-07-11] MEDS ORDERED: MAGNESIUM CITRATE 300 ML BOTTLE PO PRN (12:13)
[2021-07-11] MEDS ORDERED: ALBUTEROL SO4 HFA INHALER IH PRN (12:18)
[2021-07-11] MEDS ORDERED: methaDONE HCL 10 MG TABLET (FOR DETOX USE ONLY) PO ONE (12:30)
[2021-07-11] MEDS ORDERED: diazePAM 5 MG TABLET PO ONE (12:30)
[2021-07-11] MEDS ORDERED: diazePAM 5 MG TABLET ONE (12:35)
[2021-07-11] MEDS ORDERED: methaDONE HCL 10 MG TABLET (FOR DETOX USE ONLY) ONE ×2 (12:35→13:41)
[2021-07-11] MEDS ORDERED: methaDONE HCL 10 MG TABLET PO STA ×2 (12:41→12:49)
[2021-07-11] MEDS ORDERED: ALBUTEROL SO4 0.083% IH SOL 2.5 MG/3 ML VIAL.NEB. NEB ONE (13:15)
[2021-07-11] MEDS ORDERED: methaDONE HCL 10 MG TABLET (FOR DETOX USE ONLY) PO STA (13:27)
[2021-07-11] MEDS: PRENATAL VITAMINS W/ FOLIC ACID TABLET (FP) PO SCH (14:35)
[2021-07-11] MEDS: NICOTINE 14 MG/24 HOURS TOPICAL PATCH TD SCH (14:35)
[2021-07-11] MEDS: hydrOXYzine PAMOATE 25 MG CAPSULE (FP) PO SCH ×3 (14:41→23:34)
[2021-07-11] MEDS: TOLNAFTATE 1% CREAM 15 GM TUBE TP SCH ×2 (15:33→23:34)
[2021-07-11] MEDS: IBUPROFEN 400 MG TABLET (FP) PO PRN (15:33)
[2021-07-11] MEDS: diazePAM 5 MG TABLET PO SCH ×2 (17:29→23:34)
[2021-07-11 17:38] LABS: HEMATOCRIT 36.9 % (35.4-49); HEMOGLOBIN 12.4 GM/dL (11.7-16.9); MCH 30.4 pg (25.7-33.7); MCHC 33.6 g/dl (32.0-35.9); MEAN CELL VOLUME 90.5 fl (80-96); PLATELET COUNT 219 10^3/uL (134-434); RBC 4.08 M/mm3 (4.00-5.60); RDW 13.9 % (11.9-15.9); WHITE BLOOD COUNT 6.6 K/mm3 (4.0-10.0)
[2021-07-11 17:51] LABS: ALBUMIN 3.5 g/dl (3.4-5.0); BLOOD UREA NITROGEN 18.6 mg/dL (7-18); CALCIUM 8.3 mg/dL (8.5-10.1)
[2021-07-11 17:54] LABS: BILIRUBIN,TOTAL 0.4 mg/dL (0.2-1); CREATININE 0.9 mg/dL (0.55-1.3); TOT PROT 7.1 g/dl (6.4-8.2)
[2021-07-11] MEDS: THIAMINE HCL 100 MG TABLET (FP) PO SCH (23:34)
[2021-07-11] MEDS: MELATONIN 5 MG TABLETS PO SCH (23:34)
[2021-07-12] MEDS: hydrOXYzine PAMOATE 25 MG CAPSULE (FP) PO SCH ×5 (05:33→21:17)
[2021-07-12] MEDS: diazePAM 5 MG TABLET PO SCH ×4 (05:33→23:06)
[2021-07-12] MEDS: BISMUTH SUBSALICYLATE 524 MG/30 ML PO PRN ×2 (05:52→12:48)
[2021-07-12] MEDS: cloNIDine HCL 0.1 MG TABLET PO PRN ×3 (07:49→18:15)
[2021-07-12] MEDS ORDERED: ALBUTEROL SO4 0.083% IH SOL 2.5 MG/3 ML VIAL.NEB. NEB PRN (09:42)
[2021-07-12] MEDS ORDERED: METHOCARBAMOL 750 MG TAB PO ONE (10:00)
[2021-07-12] MEDS ORDERED: LOPERAMIDE HCL 2 MG CAPSULE PO ONE (10:00)
[2021-07-12] MEDS ORDERED: methaDONE HCL 10 MG TABLET (FOR DETOX USE ONLY) PO ONE (10:00)
[2021-07-12] MEDS: FAMOTIDINE 20 MG TABLET PO SCH ×2 (10:47→21:16)
[2021-07-12] MEDS: PRENATAL VITAMINS W/ FOLIC ACID TABLET (FP) PO SCH (10:49)
[2021-07-12] MEDS: NICOTINE 14 MG/24 HOURS TOPICAL PATCH TD SCH (10:49)
[2021-07-12] MEDS: TOLNAFTATE 1% CREAM 15 GM TUBE TP SCH ×2 (10:50→21:20)
[2021-07-12 11:56] LABS: HIV INTERPRETATION NEGATIVE (NEGATIVE)
[2021-07-12] MEDS: diazePAM 5 MG TABLET PO PRN ×2 (14:48→21:17)
[2021-07-12] MEDS: IBUPROFEN 400 MG TABLET (FP) PO PRN (18:15)
[2021-07-12] MEDS: THIAMINE HCL 100 MG TABLET (FP) PO SCH (21:16)
[2021-07-12] MEDS: ACETAMINOPHEN 325 MG TABLET (FP) PO PRN (21:17)
[2021-07-12] MEDS: MELATONIN 5 MG TABLETS PO SCH (23:04)
[2021-07-13] MEDS: diazePAM 5 MG TABLET PO SCH ×3 (05:18→22:16)
[2021-07-13] MEDS: hydrOXYzine PAMOATE 25 MG CAPSULE (FP) PO SCH ×5 (05:18→22:15)
[2021-07-13] MEDS: FAMOTIDINE 20 MG TABLET PO SCH ×2 (09:37→22:15)
[2021-07-13] MEDS: PRENATAL VITAMINS W/ FOLIC ACID TABLET (FP) PO SCH (09:37)
[2021-07-13] MEDS: NICOTINE 14 MG/24 HOURS TOPICAL PATCH TD SCH (09:37)
[2021-07-13] MEDS ORDERED: methaDONE HCL 10 MG TABLET (FOR DETOX USE ONLY) PO ONE (10:00)
[2021-07-13] MEDS: TOLNAFTATE 1% CREAM 15 GM TUBE TP SCH ×2 (11:04→22:15)
[2021-07-13] MEDS: diazePAM 5 MG TABLET PO PRN ×2 (11:07→17:34)
[2021-07-13] MEDS: METHOCARBAMOL 750 MG TAB PO PRN (12:29)
[2021-07-13] MEDS: cloNIDine HCL 0.1 MG TABLET PO PRN (12:29)
[2021-07-13] MEDS: IBUPROFEN 400 MG TABLET (FP) PO PRN (14:38)
[2021-07-13] MEDS: NICOTINE 10 MG CARTRIDGE (INHALER) IH PRN ×2 (17:37→21:34)
[2021-07-13] MEDS: THIAMINE HCL 100 MG TABLET (FP) PO SCH (22:15)
[2021-07-13] MEDS: MELATONIN 5 MG TABLETS PO SCH (22:15)
[2021-07-14] MEDS: diazePAM 5 MG TABLET PO PRN ×2 (01:25→10:15)
[2021-07-14] MEDS: IBUPROFEN 400 MG TABLET (FP) PO PRN ×3 (01:33→20:24)
[2021-07-14] MEDS: hydrOXYzine PAMOATE 25 MG CAPSULE (FP) PO SCH ×5 (05:58→22:23)
[2021-07-14] MEDS: diazePAM 5 MG TABLET PO SCH ×2 (05:58→17:03)
[2021-07-14] MEDS ORDERED: methaDONE HCL 10 MG TABLET (FOR DETOX USE ONLY) ONE (09:13)
[2021-07-14] MEDS: PRENATAL VITAMINS W/ FOLIC ACID TABLET (FP) PO SCH (10:14)
[2021-07-14] MEDS: METHOCARBAMOL 750 MG TAB PO PRN ×2 (10:14→20:24)
[2021-07-14] MEDS: FAMOTIDINE 20 MG TABLET PO SCH ×2 (10:14→22:20)
[2021-07-14] MEDS: NICOTINE 14 MG/24 HOURS TOPICAL PATCH TD SCH (10:17)
[2021-07-14] MEDS: TOLNAFTATE 1% CREAM 15 GM TUBE TP SCH ×2 (10:18→22:21)
[2021-07-14] MEDS: BISMUTH SUBSALICYLATE 524 MG/30 ML PO PRN (20:24)
[2021-07-14] MEDS: THIAMINE HCL 100 MG TABLET (FP) PO SCH (22:20)
[2021-07-14] MEDS: MELATONIN 5 MG TABLETS PO SCH (22:21)
[2021-07-15] MEDS: METHOCARBAMOL 750 MG TAB PO PRN ×3 (04:18→17:19)
[2021-07-15] MEDS ORDERED: diazePAM 5 MG TABLET PO ONE (06:00)
[2021-07-15] MEDS: hydrOXYzine PAMOATE 25 MG CAPSULE (FP) PO SCH ×5 (06:07→23:30)
[2021-07-15] MEDS: ACETAMINOPHEN 325 MG TABLET (FP) PO PRN (06:09)
[2021-07-15] MEDS: IBUPROFEN 400 MG TABLET (FP) PO PRN ×2 (09:34→17:19)
[2021-07-15] MEDS: FAMOTIDINE 20 MG TABLET PO SCH ×2 (09:34→22:07)
[2021-07-15] MEDS: TOLNAFTATE 1% CREAM 15 GM TUBE TP SCH ×2 (09:37→22:09)
[2021-07-15] MEDS: NICOTINE 14 MG/24 HOURS TOPICAL PATCH TD SCH (09:38)
[2021-07-15] MEDS ORDERED: methaDONE HCL 10 MG TABLET (FOR DETOX USE ONLY) PO ONE (10:00)
[2021-07-15] MEDS: PRENATAL VITAMINS W/ FOLIC ACID TABLET (FP) PO SCH (11:02)
[2021-07-15] MEDS ORDERED: cloNIDine HCL 0.1 MG TABLET PO ONE (21:59)
[2021-07-15] MEDS: THIAMINE HCL 100 MG TABLET (FP) PO SCH (22:07)
[2021-07-15] MEDS: MELATONIN 5 MG TABLETS PO SCH (22:08)
[2021-07-16] MEDS: hydrOXYzine PAMOATE 25 MG CAPSULE (FP) PO SCH ×2 (05:41→11:18)
[2021-07-16 09:50] VITALS: BP 96/67; PULSE 88; TEMP 97.3
[2021-07-16] MEDS: PRENATAL VITAMINS W/ FOLIC ACID TABLET (FP) PO SCH (10:13)
[2021-07-16] MEDS: NICOTINE 14 MG/24 HOURS TOPICAL PATCH TD SCH (10:14)
[2021-07-16] MEDS: TOLNAFTATE 1% CREAM 15 GM TUBE TP SCH (10:14)
[2021-07-16] MEDS: FAMOTIDINE 20 MG TABLET PO SCH (10:14)
== END 2021-07-16 13:50 | disposition other institution (70) | DRG 773 ==
LOC: YASAS 10:34 → Y6N 13:08
PROVIDERS: ADMIT Allergy & Immunology; ATTEND Allergy & Immunology
PROC: HZ2ZZZZ Detoxification Services for Substance Abuse Treatment (ICD-10-PCS; principal; 2021-07-11)
DX: F11.23 Opioid dependence with withdrawal (principal); F13.230 Sedative, hypnotic or anxiolytic dependence with withdrawal, uncomplicated; F14.20 Cocaine dependence, uncomplicated; F12.20 Cannabis dependence, uncomplicated; F17.210 Nicotine dependence, cigarettes, uncomplicated; F19.24 Other psychoactive substance dependence with psychoactive substance-induced mood disorder; J45.909 Unspecified asthma, uncomplicated; L40.9 Psoriasis, unspecified; Z86.11 Personal history of tuberculosis; Z59.02 Unsheltered homelessness
CPT/HCPCS: 36415; 73610-TC-RT-FY; 73630-TC-RT-FY; 80053; 85027; 86780; 87389; 94640; C9803; J0735; U0003; U0005

== ENCOUNTER 2021-07-16 13:55 | Inpatient (IN) | payer OTHER ==
[~2021-07-16 13:55] MED LIST: ACETAMINOPHEN 325 MG TABLET (FP) PO PRN; ALBUTEROL SO4 0.083% IH SOL 2.5 MG/3 ML VIAL.NEB. NEB PRN; ALBUTEROL SO4 HFA INHALER IH PRN; LOPERAMIDE HCL 2 MG CAPSULE PO PRN; MAG HYDROX/AL HYDROX/SIMETH 30 ML UNIT-DOSE CUP PO PRN; MAGNESIUM CITRATE 300 ML BOTTLE PO PRN; MAGNESIUM HYDROX 2400MG/30ML ORAL SUSPENSION 30 ML CUP PO PRN; NICOTINE POLACRILEX 2 MG GUM BC PRN; P-EPHED 60MG/TRIPROLIDI 2.5MG TABLET PO PRN; guaiFENesin 200 MG/10 ML 10 ML UNIT-DOSE CUPS PO PRN
[2021-07-16] MEDS: hydrOXYzine PAMOATE 25 MG CAPSULE (FP) PO SCH ×3 (14:08→21:43)
[2021-07-16] MEDS: IBUPROFEN 400 MG TABLET (FP) PO PRN (16:48)
[2021-07-16] MEDS: cloNIDine HCL 0.1 MG TABLET PO PRN (16:48)
[2021-07-16] MEDS: THIAMINE HCL 100 MG TABLET (FP) PO SCH (21:43)
[2021-07-16] MEDS: MELATONIN 5 MG TABLETS PO SCH (21:43)
[2021-07-16] MEDS: FAMOTIDINE 20 MG TABLET PO SCH (21:44)
[2021-07-16] MEDS: TOLNAFTATE 1% CREAM 15 GM TUBE TP SCH (21:44)
[2021-07-17] MEDS: IBUPROFEN 400 MG TABLET (FP) PO PRN ×2 (03:12→10:13)
[2021-07-17] MEDS: hydrOXYzine PAMOATE 25 MG CAPSULE (FP) PO SCH ×5 (07:32→21:14)
[2021-07-17] MEDS: FAMOTIDINE 20 MG TABLET PO SCH ×2 (10:13→21:15)
[2021-07-17] MEDS: PRENATAL VITAMINS W/ FOLIC ACID TABLET (FP) PO SCH (10:13)
[2021-07-17] MEDS: TOLNAFTATE 1% CREAM 15 GM TUBE TP SCH ×2 (10:14→21:16)
[2021-07-17] MEDS: NICOTINE 14 MG/24 HOURS TOPICAL PATCH TD SCH (10:14)
[2021-07-17] MEDS: cloNIDine HCL 0.1 MG TABLET PO PRN (10:24)
[2021-07-17] MEDS: THIAMINE HCL 100 MG TABLET (FP) PO SCH (21:14)
[2021-07-17] MEDS: MELATONIN 5 MG TABLETS PO SCH (21:14)
[2021-07-17] MEDS: METHOCARBAMOL 500 MG TABLET PO PRN (21:15)
[2021-07-18] MEDS: hydrOXYzine PAMOATE 25 MG CAPSULE (FP) PO SCH ×5 (06:07→21:36)
[2021-07-18] MEDS: PRENATAL VITAMINS W/ FOLIC ACID TABLET (FP) PO SCH (09:55)
[2021-07-18] MEDS: NICOTINE 14 MG/24 HOURS TOPICAL PATCH TD SCH (09:56)
[2021-07-18] MEDS: TOLNAFTATE 1% CREAM 15 GM TUBE TP SCH ×2 (09:56→21:37)
[2021-07-18] MEDS: FAMOTIDINE 20 MG TABLET PO SCH ×2 (09:56→21:36)
[2021-07-18] MEDS: IBUPROFEN 400 MG TABLET (FP) PO PRN ×2 (09:57→15:54)
[2021-07-18] MEDS: METHOCARBAMOL 500 MG TABLET PO PRN ×2 (09:57→15:54)
[2021-07-18] MEDS ORDERED: BUPRENORPHINE/NALOXONE 4 MG/1 MG FILM PACKET SL SCH ×2 (10:25→18:00)
[2021-07-18] MEDS ORDERED: BUPRENORPHINE/NALOXONE 4 MG/1 MG FILM PACKET SL ONE (10:30)
[2021-07-18] MEDS: BUPRENORPHINE/NALOXONE 4 MG/1 MG FILM PACKET SL SCH (17:34)
[2021-07-18] MEDS: THIAMINE HCL 100 MG TABLET (FP) PO SCH (21:36)
[2021-07-18] MEDS ORDERED: SUVOREXANT 10 MG TABLET PO PRN (22:00)
[2021-07-19] MEDS: hydrOXYzine PAMOATE 25 MG CAPSULE (FP) PO SCH (06:37)
[2021-07-19] MEDS: NICOTINE 14 MG/24 HOURS TOPICAL PATCH TD SCH (10:20)
[2021-07-19] MEDS: PRENATAL VITAMINS W/ FOLIC ACID TABLET (FP) PO SCH (10:21)
[2021-07-19] MEDS: FAMOTIDINE 20 MG TABLET PO SCH ×2 (10:21→21:10)
[2021-07-19] MEDS: BUPRENORPHINE/NALOXONE 4 MG/1 MG FILM PACKET SL SCH (10:21)
[2021-07-19] MEDS: hydrOXYzine PAMOATE 50 MG CAPSULE (FP) PO PRN ×2 (10:22→13:07)
[2021-07-19] MEDS: TOLNAFTATE 1% CREAM 15 GM TUBE TP SCH ×2 (10:22→21:12)
[2021-07-19] MEDS ORDERED: BUPRENORPHINE/NALOXONE 4 MG/1 MG FILM PACKET SL ONE (12:33)
[2021-07-19] MEDS: METHOCARBAMOL 500 MG TABLET PO PRN (13:07)
[2021-07-19] MEDS: BUPRENORPHINE/NALOXONE 8 MG/2 MG FILM PACKET SL SCH (18:26)
[2021-07-19] MEDS: THIAMINE HCL 100 MG TABLET (FP) PO SCH (21:10)
[2021-07-19] MEDS: IBUPROFEN 400 MG TABLET (FP) PO PRN (21:11)
[2021-07-19] MEDS: SUVOREXANT 15 MG TABLET PO PRN (21:11)
[2021-07-20] MEDS: hydrOXYzine PAMOATE 50 MG CAPSULE (FP) PO PRN ×4 (00:42→21:51)
[2021-07-20] MEDS: METHOCARBAMOL 500 MG TABLET PO PRN ×3 (00:42→21:51)
[2021-07-20] MEDS: BUPRENORPHINE/NALOXONE 8 MG/2 MG FILM PACKET SL SCH ×2 (10:14→17:05)
[2021-07-20] MEDS: NICOTINE 14 MG/24 HOURS TOPICAL PATCH TD SCH (10:14)
[2021-07-20] MEDS: PRENATAL VITAMINS W/ FOLIC ACID TABLET (FP) PO SCH (10:14)
[2021-07-20] MEDS: FAMOTIDINE 20 MG TABLET PO SCH ×2 (10:14→21:50)
[2021-07-20] MEDS: TOLNAFTATE 1% CREAM 15 GM TUBE TP SCH ×2 (10:16→21:51)
[2021-07-20] MEDS: THIAMINE HCL 100 MG TABLET (FP) PO SCH (21:51)
[2021-07-21] MEDS: hydrOXYzine PAMOATE 50 MG CAPSULE (FP) PO PRN ×2 (06:55→21:10)
[2021-07-21] MEDS: TOLNAFTATE 1% CREAM 15 GM TUBE TP SCH ×2 (09:37→21:10)
[2021-07-21] MEDS: FAMOTIDINE 20 MG TABLET PO SCH ×2 (09:37→21:08)
[2021-07-21] MEDS: NICOTINE 14 MG/24 HOURS TOPICAL PATCH TD SCH (09:37)
[2021-07-21] MEDS: BUPRENORPHINE/NALOXONE 8 MG/2 MG FILM PACKET SL SCH ×2 (09:37→17:35)
[2021-07-21] MEDS: PRENATAL VITAMINS W/ FOLIC ACID TABLET (FP) PO SCH (09:37)
[2021-07-21] MEDS: THIAMINE HCL 100 MG TABLET (FP) PO SCH (21:07)
[2021-07-21] MEDS: SUVOREXANT 15 MG TABLET PO PRN (21:08)
[2021-07-21] MEDS: IBUPROFEN 400 MG TABLET (FP) PO PRN (21:09)
[2021-07-21] MEDS: METHOCARBAMOL 500 MG TABLET PO PRN (21:09)
[2021-07-22] MEDS: NICOTINE 14 MG/24 HOURS TOPICAL PATCH TD SCH (10:05)
[2021-07-22] MEDS: FAMOTIDINE 20 MG TABLET PO SCH ×2 (10:05→21:30)
[2021-07-22] MEDS: BUPRENORPHINE/NALOXONE 8 MG/2 MG FILM PACKET SL SCH ×2 (10:05→19:18)
[2021-07-22] MEDS: PRENATAL VITAMINS W/ FOLIC ACID TABLET (FP) PO SCH (10:05)
[2021-07-22] MEDS: TOLNAFTATE 1% CREAM 15 GM TUBE TP SCH ×2 (10:06→21:32)
[2021-07-22] MEDS: METHOCARBAMOL 500 MG TABLET PO PRN ×2 (15:45→21:31)
[2021-07-22] MEDS: NICOTINE 10 MG CARTRIDGE (INHALER) IH PRN (15:46)
[2021-07-22] MEDS: THIAMINE HCL 100 MG TABLET (FP) PO SCH (21:30)
[2021-07-22] MEDS: hydrOXYzine PAMOATE 50 MG CAPSULE (FP) PO PRN (21:31)
[2021-07-22] MEDS: SUVOREXANT 15 MG TABLET PO PRN (21:31)
[2021-07-23] MEDS: FAMOTIDINE 20 MG TABLET PO SCH ×2 (10:21→21:12)
[2021-07-23] MEDS: PRENATAL VITAMINS W/ FOLIC ACID TABLET (FP) PO SCH (10:21)
[2021-07-23] MEDS: NICOTINE 14 MG/24 HOURS TOPICAL PATCH TD SCH (10:22)
[2021-07-23] MEDS: TOLNAFTATE 1% CREAM 15 GM TUBE TP SCH ×2 (10:22→22:26)
[2021-07-23] MEDS: BUPRENORPHINE/NALOXONE 8 MG/2 MG FILM PACKET SL SCH ×2 (10:22→17:08)
[2021-07-23] MEDS: hydrOXYzine PAMOATE 50 MG CAPSULE (FP) PO PRN (10:23)
[2021-07-23] MEDS: THIAMINE HCL 100 MG TABLET (FP) PO SCH (21:13)
[2021-07-23] MEDS: METHOCARBAMOL 500 MG TABLET PO PRN (21:14)
[2021-07-23] MEDS: IBUPROFEN 400 MG TABLET (FP) PO PRN (21:14)
[2021-07-23] MEDS: SUVOREXANT 5 MG TABLET PO PRN (21:15)
[2021-07-24] MEDS: NICOTINE 14 MG/24 HOURS TOPICAL PATCH TD SCH (10:20)
[2021-07-24] MEDS: FAMOTIDINE 20 MG TABLET PO SCH ×2 (10:20→21:51)
[2021-07-24] MEDS: PRENATAL VITAMINS W/ FOLIC ACID TABLET (FP) PO SCH (10:21)
[2021-07-24] MEDS: BUPRENORPHINE/NALOXONE 8 MG/2 MG FILM PACKET SL SCH ×2 (10:21→17:50)
[2021-07-24] MEDS: TOLNAFTATE 1% CREAM 15 GM TUBE TP SCH ×2 (10:21→22:11)
[2021-07-24] MEDS ORDERED: AMMONIUM LACTATE 12% LOTION 225 GM BOTTLE TP PRN (15:55)
[2021-07-24] MEDS: METHOCARBAMOL 500 MG TABLET PO PRN (21:51)
[2021-07-24] MEDS: hydrOXYzine PAMOATE 50 MG CAPSULE (FP) PO PRN (21:51)
[2021-07-24] MEDS: SUVOREXANT 5 MG TABLET PO PRN (21:52)
[2021-07-24] MEDS: THIAMINE HCL 100 MG TABLET (FP) PO SCH (22:11)
[2021-07-25] MEDS: BUPRENORPHINE/NALOXONE 8 MG/2 MG FILM PACKET SL SCH ×2 (10:02→18:09)
[2021-07-25] MEDS: FAMOTIDINE 20 MG TABLET PO SCH ×2 (10:02→21:01)
[2021-07-25] MEDS: hydrOXYzine PAMOATE 50 MG CAPSULE (FP) PO PRN (10:02)
[2021-07-25] MEDS: PRENATAL VITAMINS W/ FOLIC ACID TABLET (FP) PO SCH (10:02)
[2021-07-25] MEDS: NICOTINE 14 MG/24 HOURS TOPICAL PATCH TD SCH (10:03)
[2021-07-25] MEDS: TOLNAFTATE 1% CREAM 15 GM TUBE TP SCH ×2 (10:04→21:02)
[2021-07-25] MEDS: THIAMINE HCL 100 MG TABLET (FP) PO SCH (21:01)
[2021-07-25] MEDS: SUVOREXANT 15 MG TABLET PO PRN (21:02)
[2021-07-26 07:07] VITALS: BP 109/70; PULSE 56; TEMP 98.8
[2021-07-26] MEDS: TOLNAFTATE 1% CREAM 15 GM TUBE TP SCH ×2 (10:30→23:33)
[2021-07-26] MEDS: FAMOTIDINE 20 MG TABLET PO SCH ×2 (10:30→23:33)
[2021-07-26] MEDS: BUPRENORPHINE/NALOXONE 8 MG/2 MG FILM PACKET SL SCH ×2 (10:30→19:25)
[2021-07-26] MEDS: NICOTINE 14 MG/24 HOURS TOPICAL PATCH TD SCH (10:30)
[2021-07-26] MEDS: PRENATAL VITAMINS W/ FOLIC ACID TABLET (FP) PO SCH (10:30)
[2021-07-26] MEDS: hydrOXYzine PAMOATE 50 MG CAPSULE (FP) PO PRN (10:30)
[2021-07-26] MEDS ORDERED: BUPRENORPHINE/NALOXONE 8 MG/2 MG FILM PACKET SL SCH (18:00)
[2021-07-26] MEDS: SUVOREXANT 15 MG TABLET PO PRN (23:32)
[2021-07-26] MEDS: THIAMINE HCL 100 MG TABLET (FP) PO SCH (23:33)
[2021-07-27] MEDS: BUPRENORPHINE/NALOXONE 8 MG/2 MG FILM PACKET SL SCH ×2 (10:30→17:27)
[2021-07-27] MEDS: FAMOTIDINE 20 MG TABLET PO SCH ×2 (10:30→21:09)
[2021-07-27] MEDS: PRENATAL VITAMINS W/ FOLIC ACID TABLET (FP) PO SCH (10:30)
[2021-07-27] MEDS: NICOTINE 14 MG/24 HOURS TOPICAL PATCH TD SCH (10:30)
[2021-07-27] MEDS: TOLNAFTATE 1% CREAM 15 GM TUBE TP SCH ×2 (11:51→21:10)
[2021-07-27] MEDS: SUVOREXANT 15 MG TABLET PO PRN (21:09)
[2021-07-27] MEDS: THIAMINE HCL 100 MG TABLET (FP) PO SCH (21:09)
[2021-07-27] MEDS: METHOCARBAMOL 500 MG TABLET PO PRN (21:10)
[2021-07-27] MEDS: hydrOXYzine PAMOATE 50 MG CAPSULE (FP) PO PRN (23:27)
[2021-07-28] MEDS: PRENATAL VITAMINS W/ FOLIC ACID TABLET (FP) PO SCH (10:43)
[2021-07-28] MEDS: BUPRENORPHINE/NALOXONE 8 MG/2 MG FILM PACKET SL SCH ×2 (10:43→17:34)
[2021-07-28] MEDS: NICOTINE 14 MG/24 HOURS TOPICAL PATCH TD SCH (10:44)
[2021-07-28] MEDS: TOLNAFTATE 1% CREAM 15 GM TUBE TP SCH ×2 (10:44→21:48)
[2021-07-28] MEDS: hydrOXYzine PAMOATE 50 MG CAPSULE (FP) PO PRN ×3 (10:44→21:50)
[2021-07-28] MEDS: FAMOTIDINE 20 MG TABLET PO SCH ×2 (10:44→22:40)
[2021-07-28] MEDS: METHOCARBAMOL 500 MG TABLET PO PRN (17:34)
[2021-07-28] MEDS: THIAMINE HCL 100 MG TABLET (FP) PO SCH (21:47)
[2021-07-28] MEDS: SUVOREXANT 15 MG TABLET PO PRN (21:49)
[2021-07-29] MEDS: hydrOXYzine PAMOATE 50 MG CAPSULE (FP) PO PRN (10:29)
[2021-07-29] MEDS: NICOTINE 14 MG/24 HOURS TOPICAL PATCH TD SCH (10:29)
[2021-07-29] MEDS: FAMOTIDINE 20 MG TABLET PO SCH ×2 (10:29→23:50)
[2021-07-29] MEDS: BUPRENORPHINE/NALOXONE 8 MG/2 MG FILM PACKET SL SCH ×2 (10:29→17:54)
[2021-07-29] MEDS: TOLNAFTATE 1% CREAM 15 GM TUBE TP SCH ×2 (10:29→23:51)
[2021-07-29] MEDS: PRENATAL VITAMINS W/ FOLIC ACID TABLET (FP) PO SCH (10:29)
[2021-07-29] MEDS: THIAMINE HCL 100 MG TABLET (FP) PO SCH (23:51)
[2021-07-30] MEDS: hydrOXYzine PAMOATE 50 MG CAPSULE (FP) PO PRN ×3 (00:40→21:26)
[2021-07-30] MEDS: METHOCARBAMOL 500 MG TABLET PO PRN ×3 (00:40→21:25)
[2021-07-30] MEDS: NICOTINE 14 MG/24 HOURS TOPICAL PATCH TD SCH (10:33)
[2021-07-30] MEDS: PRENATAL VITAMINS W/ FOLIC ACID TABLET (FP) PO SCH (10:33)
[2021-07-30] MEDS: BUPRENORPHINE/NALOXONE 8 MG/2 MG FILM PACKET SL SCH ×2 (10:33→17:17)
[2021-07-30] MEDS: FAMOTIDINE 20 MG TABLET PO SCH ×2 (10:33→21:25)
[2021-07-30] MEDS: TOLNAFTATE 1% CREAM 15 GM TUBE TP SCH (10:34)
[2021-07-30] MEDS ORDERED: COLLOIDAL OATMEAL 1 BAR EACH TP PRN (11:48)
[2021-07-30] MEDS: TRIAMCINOLONE ACET 0.5% OINT 15 GM TUBE TP SCH ×2 (15:49→21:26)
[2021-07-30] MEDS: THIAMINE HCL 100 MG TABLET (FP) PO SCH (21:25)
[2021-07-30] MEDS: IBUPROFEN 400 MG TABLET (FP) PO PRN (21:27)
[2021-07-30] MEDS ORDERED: SUVOREXANT 15 MG TABLET PO PRN (22:00)
[2021-07-31] MEDS: BUPRENORPHINE/NALOXONE 8 MG/2 MG FILM PACKET SL SCH ×2 (10:49→17:48)
[2021-07-31] MEDS: hydrOXYzine PAMOATE 50 MG CAPSULE (FP) PO PRN ×2 (10:49→21:07)
[2021-07-31] MEDS: PRENATAL VITAMINS W/ FOLIC ACID TABLET (FP) PO SCH (10:49)
[2021-07-31] MEDS: FAMOTIDINE 20 MG TABLET PO SCH ×2 (10:51→21:07)
[2021-07-31] MEDS: NICOTINE 14 MG/24 HOURS TOPICAL PATCH TD SCH (10:51)
[2021-07-31] MEDS: TRIAMCINOLONE ACET 0.5% OINT 15 GM TUBE TP SCH ×2 (10:52→21:11)
[2021-07-31] MEDS: METHOCARBAMOL 500 MG TABLET PO PRN (21:07)
[2021-07-31] MEDS: THIAMINE HCL 100 MG TABLET (FP) PO SCH (21:07)
[2021-08-01] MEDS: NICOTINE 14 MG/24 HOURS TOPICAL PATCH TD SCH (09:00)
[2021-08-01] MEDS: FAMOTIDINE 20 MG TABLET PO SCH (09:00)
[2021-08-01] MEDS: PRENATAL VITAMINS W/ FOLIC ACID TABLET (FP) PO SCH (09:00)
[2021-08-01] MEDS: hydrOXYzine PAMOATE 50 MG CAPSULE (FP) PO PRN (09:00)
[2021-08-01] MEDS: BUPRENORPHINE/NALOXONE 8 MG/2 MG FILM PACKET SL SCH (09:00)
[2021-08-01] MEDS: TRIAMCINOLONE ACET 0.5% OINT 15 GM TUBE TP SCH (09:01)
[2021-08-01] MEDS: NICOTINE 10 MG CARTRIDGE (INHALER) IH PRN (09:09)
== END 2021-08-01 09:21 | disposition home or self-care (01) | DRG 772 ==
LOC: YASAS 13:55 → Y3W 13:56
PROVIDERS: ADMIT Allergy & Immunology; ATTEND Allergy & Immunology
PROC: HZ42ZZZ Group Counseling for Substance Abuse Treatment, Cognitive-Behavioral (ICD-10-PCS; principal; 2021-07-16)
DX: F11.23 Opioid dependence with withdrawal (principal); F13.230 Sedative, hypnotic or anxiolytic dependence with withdrawal, uncomplicated; F19.24 Other psychoactive substance dependence with psychoactive substance-induced mood disorder; F19.282 Other psychoactive substance dependence with psychoactive substance-induced sleep disorder; J45.909 Unspecified asthma, uncomplicated; L40.9 Psoriasis, unspecified; Z86.11 Personal history of tuberculosis; Z56.0 Unemployment, unspecified; Z59.00 Homelessness unspecified
CPT/HCPCS: J0735